=== PATIENT | female | born 1980 ===

== ENCOUNTER 2021-01-19 10:57 | Emergency (ER) | payer MEDICAID ==
[~2021-01-19] VITALS: Ht 152.4 cm; Wt 65.0 kg
[2021-01-19 11:00] VITALS: BP 141/84
== END 2021-01-19 12:49 | disposition left against medical advice (07) ==
LOC: EMS 10:57
DX: R05 Cough (principal); Z53.21 Procedure and treatment not carried out due to patient leaving prior to being seen by health care provider